=== PATIENT | male | born 1985 | race Caucasian/White ===

== ENCOUNTER 2019-11-03 20:45 | Emergency (ER) | payer BC ==
--- NOTE | 2019-11-03 21:10 | EDM.PDOC ---
ED HPI GENERAL MEDICAL PROBLEM - General Chief Complaint: Gastrointestinal Problem Stated Complaint: VOMITTING, DIZZNIESS Time Seen by Provider: 11/03/19 21:09 Source of Information: Reports: Patient History Limitations: Reports: No Limitations - History of Present Illness INITIAL COMMENTS - FREE TEXT/NARRATIVE: Is a 34-year-old male who is complaining of having vertigo symptoms with vomiting starting yesterday but getting worse today. Had vertigo in the past though nothing severe. He denies any headache or numbness or paresthesias. No weakness or change in vision or hearing. Patient has never been seen before for his vertigo symptoms. Has vomiting actively with any movement and is laying on his side in the room with his eyes closed. Patient does have bilateral nystagmus with his eye exam Duration: Day(s):, Getting Worse Severity: Severe Improves with: Reports: Rest Worsens with: Reports: Movement Associated Symptoms: Reports: Nausea/Vomiting. Denies: Diaphoresis, Fever/ Chills, Headaches, Rash - Related Data Allergies Allergy/AdvReac Type Severity Reaction Status Date / Time No Known Allergies Allergy Verified 11/03/19 20:51 Home Meds: Home Meds . [No Known Home Meds] 11/03/19 [History] ED ROS GENERAL - Review of Systems Review Of Systems: Comprehensive ROS is negative, except as noted in HPI. ED EXAM, GI/ABD - Physical Exam Exam: See Below Text/Narrative:: Exam: See Below Exam Limited By: No Limitations. Patient is in mild distress secondary to his vertigo worse with movement. Head: Atraumatic Neck: Normal Inspection. No: Carotid Bruit, Lymphadenopathy (R) Respiratory/Chest: No Respiratory Distress, Lungs Clear, Normal Breath Sounds, No Accessory Muscle Use. No: Chest Non-Tender Cardiovascular: Normal Peripheral Pulses, Regular Rate, Rhythm, No Edema, No JVD GI/Abdominal: Normal Bowel Sounds, Tender. No: Non-Tender, Splenomegaly Back Exam: Normal Inspection. No: CVA Tenderness (R) Extremities: Normal Inspection. No: No Pedal Edema Neurological: Alert, Oriented, Normal Cognition. Positive bilateral nystagmus which worsens symptoms. Cranial nerves II through XII grossly intact Psychiatric: Normal Affect Skin Exam: Warm Lymphatic: No Adenopathy Course - Vital Signs Last Recorded V/S: Last Vital Signs Temp 36.6 C 11/03/19 20:45 Pulse 79 11/03/19 23:29 Resp 18 11/03/19 23:29 BP 115/52 L 11/03/19 23:29 Pulse Ox 98 11/03/19 20:45 - Orders/Labs/Meds Meds: Medications Discontinued Medications Generic Name Dose Route Start Last Admin Trade Name Sade PRN Reason Stop Dose Admin Sodium Chloride 1,000 mls @ 999 mls/hr 11/03/19 21:17 11/03/19 21:18 Normal Saline IV 11/03/19 22:17 999 mls/hr NOW STA Administration Sodium Chloride 1,000 mls @ 999 mls/hr 11/03/19 23:18 11/03/19 23:25 Normal Saline IV 11/04/19 00:18 999 mls/hr .BOLUS ONE Administration Lorazepam 1 mg 11/03/19 22:23 11/03/19 22:29 Ativan PO 11/03/19 22:24 1 mg ONETIME ONE Administration Lorazepam 1 mg 11/03/19 22:47 11/03/19 22:52 Ativan IVPUSH 11/03/19 22:48 1 mg ONETIME ONE Administration Lorazepam 1 mg 11/03/19 23:19 11/03/19 23:27 Ativan IVPUSH 11/03/19 23:20 1 mg ONETIME ONE Administration Meclizine HCl 25 mg 11/03/19 21:39 11/03/19 21:48 Antivert PO 11/03/19 21:40 25 mg ONETIME ONE Administration Metoclopramide HCl 10 mg 11/03/19 21:12 11/03/19 21:18 Reglan IVPUSH 11/03/19 21:13 10 mg ONETIME ONE Administration - Re-Assessments/Exams Free Text/Narrative Re-Assessment/Exam: 11/04/19 00:48 Patient required numerous meds including Reglan meclizine and Ativan before he was able to sit up and ambulate. Received 2 L of IV fluid. Feeling much better at this point and is able to go home. Departure - Departure Time of Disposition: 00:49 Disposition: Home, Self-Care 01 Condition: Good Clinical Impression: Benign positional vertigo, Vomiting - Discharge Information Instructions: Vertigo, [id number], Nausea and Vomiting, Adult Referrals: PCP,None [Primary Care Provider] - Forms: ED Department Discharge Additional Instructions: Meds as prescribed when needed. Follow-up with neurologist if not improving. Return to ER if worse. Increase p.o. fluids to keep urine light yellow to clear in color. The following information is given to patients seen in the emergency department who are being discharged to home. This information is to outline your options for follow-up care. We provide all patients seen in our emergency department with a follow-up referral. The need for follow-up, as well as the timing and circumstances, are variable depending upon the specifics of your emergency department visit. If you don't have a primary care physician on staff, we will provide you with a referral. We always advise you to contact your personal physician following an emergency department visit to inform them of the circumstance of the visit and for follow-up with them and/or the need for any referrals to a consulting specialist. The emergency department will also refer you to a specialist when appropriate. This referral assures that you have the opportunity for follow-up care with a specialist. All of these measure are taken in an effort to provide you with optimal care, which includes your follow-up. Under all circumstances we always encourage you to contact your private physician who remains a resource for coordinating your care. When calling for follow-up care, please make the office aware that this follow-up is from your recent emergency room visit. If for any reason you are refused follow-up, please contact the [facility] Emergency Department at and asked to speak to the emergency department charge nurse. Sepsis Event Note - Evaluation Sepsis Screening Result: No Definite Risk - Focused Exam Vital Signs: Vital Signs Temp Pulse Resp BP Pulse Ox 11/03/19 23:29 79 18 115/52 L 11/03/19 20:45 36.6 C 96 18 120/79 98 Date Exam was Performed: 11/04/19 Time Exam was Performed: 00:45
[2019-11-03] MEDS ORDERED: Metoclopramide 10 MG/2 ML SDV IVPUSH ONE (21:12)
[2019-11-03] MEDS ORDERED: Sodium Chloride 0.9% 1,000 ML IV STA (21:17)
[2019-11-03] MEDS ORDERED: Meclizine 25 MG Tab PO ONE (21:39)
[2019-11-03] MEDS ORDERED: LORazepam 1 MG Tab PO ONE (22:23)
[2019-11-03] MEDS ORDERED: LORazepam 2 MG/ML SDV IVPUSH ONE ×2 (22:47→23:19)
[2019-11-03] MEDS ORDERED: Sodium Chloride 0.9% 1,000 ML IV ONE (23:18)
== END 2019-11-04 01:10 | disposition home or self-care (01) ==
LOC: MW.ED 20:45
DX: H81.10 Benign paroxysmal vertigo, unspecified ear (principal); R11.2 Nausea with vomiting, unspecified
CPT/HCPCS: 96361; 96374; 96375; 96376; 99283; A9270; J2060; J2765; J7030; 99282